=== PATIENT | female | born 1975 | race Caucasian/White ===

== ENCOUNTER 2016-09-07 12:42 | Emergency (ER) | payer MEDICAID ==
--- NOTE | ~2016-09-07 | ER ---
PATIENT'S NAME: VALERY VENTURA [facility] AGE: 40 Y [address] ROOM: [place] [address] LOCATION: ED ADMIT DATE: 09/07/2016 ER/Outpatient Report DISCHARGE DATE: 09/07/2016 FAMILY PHYSICIAN: JUANCHO GRANDE ATTENDING PHYSICIAN: Huber Sorenson CHIEF COMPLAINT: Abdominal pain, urinary frequency, and mouth pain. HISTORY OF PRESENT ILLNESS: The patient states that for the last 5 years she has had pain in the roof of her mouth after she had a tooth removed. She has seen her dentist multiple times for the swelling area that she thinks is infected. She states that the pain over the last 3 weeks has been slowly spreading over the right side of her face, but it feels like her prior migraine headaches as well. She denies any fevers, chills, or difficulty swallowing. She is concerned about losing her teeth. She has no symptoms of sinusitis. She also notes that she did have a Plan B emergency contraception a few weeks ago after taking the Depo shot and having an "accident with the condom," after which time she has had persistent abdominal discomfort. She also notes that she has been more frequently with urination lately, and she thinks she started spotting again today. She would like to find a new dentist, but no other dentists accept Medicaid. PAST MEDICAL HISTORY: Documented on the record and reviewed by me. SOCIAL HISTORY: Documented on the record and reviewed by me. MEDICATIONS: Documented on the record and reviewed by me. ALLERGIES: DOCUMENTED ON THE RECORD AND REVIEWED BY ME. REVIEW OF SYSTEMS: All systems were reviewed and negative except as noted in the HPI. PHYSICAL EXAMINATION: VITAL SIGNS: Blood pressure is 145/87, pulse is 94, respiratory rate is 20, temperature is 98.2, and SpO2 is 97% on room air. Pain is rated at 7/10. GENERAL: Age-appropriate female, sitting upright on the exam table. No obvious pain or distress. NEURO: The patient is awake and alert. GCS is 15. Thought processes are PATIENT'S NAME: VALERY VENTURA [facility] AGE: 40 Y [address] ROOM: [place] [address] LOCATION: [facility] ADMIT DATE: 09/07/2016 ER/Outpatient Report DISCHARGE DATE: 09/07/2016 FAMILY PHYSICIAN: PHYSICIAN, NO ATTENDING PHYSICIAN: Huber Sorenson. Comments are out of context. The patient exhibits no other focal neurologic findings. HEENT: Normocephalic, atraumatic. The eyes are PERRL. The oropharynx is grossly clear. There is scarring on the hard and soft palate. There is one area of fluctuance with no surrounding erythema on the roof of the mouth, slightly on the right side. There are no masses along the dental mucosa, buccal mucosa or in the cheek. The maxilla is nontender to palpation. The teeth are overall in poor repair. No other obvious intraoral abnormalities. NECK: Supple. The trachea is midline. No masses. No adenopathy. CHEST: Normal to auscultation, even unlabored respirations. Lungs are clear. HEART: Regular. No murmurs. ABDOMEN: Soft, nontender, nondistended. No rebound, guarding, or masses. No suprapubic tenderness. BACK: Normal to inspection. No CVA tenderness. No spinal tenderness. EXTREMITIES: Warm and well perfused. LABORATORY DATA AND X-RAYS: None from x-rays. Gram stain with many white blood cells, with no areas of bacteria observed. Culture is pending. Urinalysis is not consistent with infection at this time. IMPRESSION: Small abscess on the roof of the mouth, confined without evidence of systemic infection, chronic. EMERGENCY DEPARTMENT COURSE: The patient was seen and evaluated as above. Urinalysis is not consistent with infection. I do not think the patient has ectopic or retained products of conception. The patient is not septic at this time. I did perform an aspiration of the "blister" on the roof of her mouth. I was able to aspirate a scant amount of purulent bloody material, which was sent for Gram stain and culture. We will treat the patient with clindamycin for the oral infection, follow up on her cultures and adjust as needed. All questions were answered, and the patient was discharged in good condition with instructions to use Tylenol as needed. MD CLIFF CORTÉS/leatha /[id number] d: 09/07/162229 t: 09/09/162222, OUTPATIENT REPORT
[2016-09-07 14:34] LABS: COLOR URINE YELLOW (YELLOW); TURBIDITY URINE CLEAR (CLEAR)
[2016-09-07 14:35] LABS: BILIRUBIN URINE NEGATIVE (NEGATIVE); BLOOD URINE 50 /UL (NEGATIVE); GLUCOSE URINE NEGATIVE (NEGATIVE); KETONE URINE NEGATIVE (NEGATIVE); LEUKOCYTES URINE 25 /UL (NEGATIVE); NITRITE URINE NEGATIVE (NEGATIVE); PROTEIN URINE NEGATIVE (NEGATIVE); SPEC GRAVITY URINE 1.015 (1.003-1.035); UROBILINOGEN URINE NORMAL (NORMAL)
[2016-09-07 14:39] LABS: AMORPHOUS URINE 1+ (NEGATIVE); BACTERIA URINE FEW (NEGATIVE); RBC URINE 0-2 #/HPF (NEGATIVE)
[2016-09-07 14:47] LABS: BARBITURATE NEGATIVE (NEGATIVE); COCAINE NEGATIVE (NEGATIVE); OPIATES NEGATIVE (NEGATIVE)
[2016-09-07 14:51] LABS: AMPHETAMINE NEGATIVE (NEGATIVE)
== END 2016-09-07 15:35 | disposition disaster alternative care site (69) ==
LOC: GMED 12:42
PROVIDERS: Emergency Medicine
PROC: 0C92XZZ Drainage of Hard Palate, External Approach (ICD-10-PCS; principal; 2016-09-07)
DX: K12.2 Cellulitis and abscess of mouth (principal)